=== PATIENT | female | born 1945 | race Caucasian/White ===

== ENCOUNTER → 2018-02-11 09:10 | Outpatient (CLI) | payer OTHER, SELFPAY ==
--- NOTE | 2018-02-11 09:12 | DI.US.S_ITS ---
LIMITED ULTRASOUND OF LEFT BREAST: 02/11/2018 CLINICAL: Diffuse left breast pain. Improving since onset December 2017. Comparison is made to exams dated: 02/28/2017 mammogram, 12/27/2015 mammogram, and 06/23/2014 mammogram - [facility]. Real-time and Doppler ultrasound of the left breast were performed. Targeted ultrasound was performed in the areas of the patient's reported diffuse left breast pain (including the 4, 7, and 10 o'clock radians). No underlying breast mass or abnormality is identified. The patient is status post left mastectomy. A left breast implant is partially imaged on this exam. IMPRESSION: BENIGN 1) No ultrasound findings to explain patient's reported diffuse left breast pain. Recommend clinical follow-up for further evaluation and management of the patient's reported symptoms. 2) There is no sonographic evidence of malignancy in the imaged left breast, which is status post mastectomy. Recommend clinical follow-up for further evaluation and management. The patient is advised to monitor her breasts and to return for re-evaluation should she feel anything grow or change. This exam was interpreted at Station ID: [id number]. Electronically Signed By: Harrison Esquivel M.D. ecl/:02/11/2018 11:29:12 letter sent: Clinical Evaluation Ultrasound BI-RADS: 2 Benign
--- NOTE | 2018-02-11 09:12 | DI.MG.S_ITS ---
UNILATERAL RIGHT DIGITAL DIAGNOSTIC MAMMOGRAM 3D/2D POST MASTECTOMY: 02/11/2018 CLINICAL: Right breast lump. Per technologist, the patient had a clinical breast exam approximately 2 weeks prior. The order requisition states Lump in right breast LOQ. However, the patient is unable to identify the area herself on today's exam. The patient denies any pain, skin changes, or discharge. Comparison is made to exams dated: 02/28/2017 mammogram, 12/27/2015 mammogram, and 06/23/2014 mammogram - [facility]. The tissue of right breast is predominantly fatty. No suspicious masses or abnormalities are identified in the lower outer quadrant of the right breast. There are overlying circular mole markers on the skin. An asymmetry in the inner/medial right breast posterior depth seen only on the RCC view resolves with additional spot tomosynthesis images, and likely represented superimposition of benign tissues. No significant masses, calcifications, or other findings are seen in the imaged right breast. IMPRESSION: INCOMPLETE: NEEDS ADDITIONAL IMAGING EVALUATION No mammographic abnormality to correlate with the site of the patient's provider's reported focal palpable abnormality in the lower outer quadrant of the right breast. Targeted diagnostic ultrasound recommended for further evaluation, which will be performed immediately following this exam. This exam was interpreted at Station ID: [id number]. NOTE: For mammograms, a report in lay terms will be sent to the patient. Approximately 15% of breast malignancies will not be visualized mammographically. In the management of a palpable breast mass, a negative mammogram must not discourage biopsy of a clinically suspicious lesion. Electronically Signed By: Harrison Esquivel M.D. ecl/:02/11/2018 10:04:10 letter sent: Additional Imaging Needed ACR BI-RADS Category 0: Incomplete [id number]
--- NOTE | 2018-02-11 09:12 | DI.US.S_ITS ---
LIMITED ULTRASOUND OF RIGHT BREAST: 02/11/2018 CLINICAL: Palpable right breast lump by physician. Per technologist, the patient had a clinical breast exam approximately 2 weeks prior. The order requisition states Lump in right breast LOQ. However, the patient is unable to identify the area herself on today's exam. The patient denies any pain, skin changes, or discharge. Comparison is made to exams dated: 02/11/2018 mammogram - [facility], 02/28/2017 mammogram, 12/27/2015 mammogram, and 06/23/2014 mammogram - [place]. Real-time ultrasound of the right breast lower aspect was performed. Knight scale images of the real-time examination were reviewed. Targeted ultrasound was performed in the region of the patient's provider's reported focal palpable abnormality. Lower right breast scarring noted. No other underlying breast mass or abnormality is identified. IMPRESSION: BENIGN 1) Lower right breast scarring noted. No other ultrasound findings to explain patient's provider's reported focal palpable abnormality. Recommend clinical follow-up for further evaluation and management of the patient's reported symptoms. 2) There is no sonographic evidence of malignancy in the imaged right breast. Return to annual screening mammography of the right breast is recommended. The patient is advised to monitor her breasts and to return sooner for re-evaluation should she feel anything grow or change. This exam was interpreted at Station ID: [id number]. Electronically Signed By: Harrison Esquivel M.D. ecl/:02/11/2018 11:23:40 letter sent: Clinical Evaluation Ultrasound BI-RADS: 2 Benign
== END ==
PROVIDERS: PCP Family Medicine; Visit Provider Family Medicine
DX: R92.8 Other abnormal and inconclusive findings on diagnostic imaging of breast (principal); N63.13 Unspecified lump in the right breast, lower outer quadrant; N64.4 Mastodynia; Z85.3 Personal history of malignant neoplasm of breast; Z90.12 Acquired absence of left breast and nipple; Z98.82 Breast implant status
CPT/HCPCS: 76642; 77065; G0279

== ENCOUNTER → 2018-11-18 14:00 | Oncology outpatient (ONC) | payer OTHER, SELFPAY ==
--- NOTE | 2018-03-22 13:20 | ONC.PN ---
PN -Subjective Interval history: Jacy Vargas is a 72 year old female. In 2008, she presents with left upper abdominal pain. Cholecystitis was suspected. She underwent laparoscopic cholecystectomy at [place]. During surgery, a pancreatic mass was noted and was biopsied. The pathology showed pancreatic adenocarcinoma which was verified at [facility]. She underwent 8 months of chemotherapy with gem/cis. While during the chemotherapy, she also took Emvezil from [facility] which she is still taking up to now. At the time, she did not tell treating medical oncologist in fear that her chemotherapy might be terminated. After, five months of chemotherapy, scan showed the tumor was shrinking. She said she did get pancreatic surgery because she was deemed not a suitable candidate due to previous surgery. Since then, she has been getting CT scan every year and has been unremarkable until Dec 2016 when a nodule on the left in the lung was noted in [place]. She is now being followed at [facility] by Dr. Toscano, pulmonary specialty. Next CT scan is scheduled for Apr 2018. In 2003, she was diagnosed with left breast DCIS. She underwent left mastectomy. She did not receive chemo and did not receive radiation. She took 5 years of arimidex. She is here to establish care. Her energy level is Ok if not for the right shoulder soreness. She felt like in the muscle. She is getting Physical therapy and found it very helpful. Appetite is good. She reports no shortness of breath, or chest pain. She denies nausea or vomiting. She reports no constipation or diarrhea or BRBPR or black stool. Her weight has been stable. She has a port in place and is now getting port flushes every month. - Additional ROS All systems PM: reviewed and no additional remarkable complaints except as stated Home Medications and Allergies Home Medications Medication Instructions Recorded Confirmed Type amlodipine 10 mg PO QDAY #90 tab 10/26/15 02/13/18 Rx fenofibrate nanocrystallized 145 mg PO QDAY #90 tab 10/26/15 02/13/18 Rx [Tricor] insulin regular hum U-500 conc 0 unit SQ BID #0 11/03/15 02/13/18 History [Humulin R U-500 (Conc) Insulin] vitamins A,C,V-upom-wrtmgy 1 sgl PO BID #0 11/03/15 02/13/18 History [PreserVision AREDS] [VITAMIN D] 50,000 iu PO QWEEK #4 tab 05/31/16 02/13/18 Rx epinephrine 0.3 mg IM PRN PRN #0 07/03/16 02/13/18 History insulin NPH isoph U-100 human 0 unit SQ #0 07/03/16 02/13/18 History [Humulin N NPH U-100 Insulin] rosuvastatin [Crestor] 10 mg PO QPM #0 09/25/16 02/13/18 History lisinopril 40 mg PO QDAY #90 tab 10/18/16 02/13/18 Rx metformin [Glucophage] 1,000 mg PO BIDCC #180 tab 01/26/17 02/13/18 Rx spironolactone 25 mg tablet 25 mg PO DAILY #90 tab 02/18/18 Rx blood sugar diagnostic [True 03/22/18 03/22/18 History Metrix Glucose Test Strip] blood-glucose meter [True Metrix 03/22/18 03/22/18 History Glucose Meter] clindamycin HCl 03/22/18 History clindamycin HCl 03/22/18 History lancets [True Comfort Lancet] 03/22/18 03/22/18 History metoprolol succinate 12.5 mg PO QDRHS 03/22/18 03/22/18 History metoprolol succinate 25 mg PO QDAY 03/22/18 History Allergies Allergy/AdvReac Type Severity Reaction Status Date / Time Penicillins [PENICILLINS] Allergy Unknown HIVES Verified 02/13/18 13:51 Exam Vital signs: Last Vital Signs Temp 98.8 F 03/22/18 15:15 Pulse 80 03/22/18 15:15 Resp 18 03/22/18 15:15 BP 157/66 H 03/22/18 15:15 ECOG 1 Narrative: Gen: WDWN, moderate obese, NAD, very pleasant and cooperative. HEENT: NCAT, EOMI, PERLLA, anicteric, Neck: Supple, No palpable thyromegaly, and no palpable lymphadenopathy Resp: CTAB, no wheezes Abd: soft, nontender, no palpable organomegaly Ext: no pitting edema Neuro: AOx3, nonfocal. Results - Labs Reviewed. Assessment and Plan (1) Malignant neoplasm of pancreas Problem details: Pancreatic adenocarcinoma, diagnosed in 2009, s/p chemotherapy. No surgical resection per patient. Assessment and Plan: Clinically, I do not think there is any evidence to suggest disease recurrence or metastasis. Will have her come back in 3 months, CBC, CMP, CA19-9, and CEA one week prior to the visit. Port flush every 6-8 weeks. (2) DCIS (ductal carcinoma in situ) of breast Problem details: In 2003, she was diagnosed with left breast DCIS. She underwent left mastectomy. She did not receive chemo and did not receive radiation. She took 5 years of arimidex. Assessment and Plan: Will continue current annual H&P and mammogram.
--- NOTE | 2018-03-22 13:39 | P.PNONC_ITS ---
PN -Subjective Interval history: Jacy Vargas is a 72 year old female. In 2008, she presents with left upper abdominal pain. Cholecystitis was suspected. She underwent laparoscopic cholecystectomy at [place], [place]. During surgery, a pancreatic mass was noted and was biopsied. The pathology showed pancreatic adenocarcinoma which was verified at [facility]. She underwent 8 months of chemotherapy with gem/cis. While during the chemotherapy, she also took Emvezil from [facility] which she is still taking up to now. At the time, she did not tell treating medical oncologist in fear that her chemotherapy might be terminated. After, five months of chemotherapy, scan showed the tumor was shrinking. She said she did get pancreatic surgery because she was deemed not a suitable candidate due to previous surgery. Since then, she has been getting CT scan every year and has been unremarkable until Dec 2016 when a nodule on the left in the lung was noted in [place]. She is now being followed at [facility] by Dr. Toscano , pulmonary specialty. Next CT scan is scheduled for Apr 2018. In 2003, she was diagnosed with left breast DCIS. She underwent left mastectomy. She did not receive chemo and did not receive radiation. She took 5 years of arimidex. She is here to establish care. Her energy level is Ok if not for the right shoulder soreness. She felt like in the muscle. She is getting Physical therapy and found it very helpful. Appetite is good. She reports no shortness of breath, or chest pain. She denies nausea or vomiting. She reports no constipation or diarrhea or BRBPR or black stool. Her weight has been stable. She has a port in place and is now getting port flushes every month. - Additional ROS All systems PM: reviewed and no additional remarkable complaints except as stated Home Medications and Allergies Home Medications Medication Instructions Recorded Confirmed Type amlodipine 10 mg PO QDAY #90 tab 10/26/15 02/13/18 Rx fenofibrate nanocrystallized 145 mg PO QDAY #90 tab 10/26/15 02/13/18 Rx [Tricor] insulin regular hum U-500 conc 0 unit SQ BID #0 11/03/15 02/13/18 History [Humulin R U-500 (Conc) Insulin] vitamins A,C,O-rdin-fkiiaz 1 sgl PO BID #0 11/03/15 02/13/18 History [PreserVision AREDS] [VITAMIN D] 50,000 iu PO QWEEK #4 tab 05/31/16 02/13/18 Rx epinephrine 0.3 mg IM PRN PRN #0 07/03/16 02/13/18 History insulin NPH isoph U-100 human 0 unit SQ #0 07/03/16 02/13/18 History [Humulin N NPH U-100 Insulin] rosuvastatin [Crestor] 10 mg PO QPM #0 09/25/16 02/13/18 History lisinopril 40 mg PO QDAY #90 tab 10/18/16 02/13/18 Rx metformin [Glucophage] 1,000 mg PO BIDCC #180 tab 01/26/17 02/13/18 Rx spironolactone 25 mg tablet 25 mg PO DAILY #90 tab 02/18/18 Rx blood sugar diagnostic [True 03/22/18 03/22/18 History Metrix Glucose Test Strip] blood-glucose meter [True Metrix 03/22/18 03/22/18 History Glucose Meter] clindamycin HCl 03/22/18 History clindamycin HCl 03/22/18 History lancets [True Comfort Lancet] 03/22/18 03/22/18 History metoprolol succinate 12.5 mg PO QDRHS 03/22/18 03/22/18 History metoprolol succinate 25 mg PO QDAY 03/22/18 History Allergies Allergy/AdvReac Type Severity Reaction Status Date / Time Penicillins [PENICILLINS] Allergy Unknown HIVES Verified 02/13/18 13:51 Exam Vital signs: 2 Last Vital Signs Temp 98.8 F 03/22/18 15:15 Pulse 80 03/22/18 15:15 Resp 18 03/22/18 15:15 BP 157/66 H 03/22/18 15:15 ECOG 1 Narrative: Gen: WDWN, moderate obese, NAD, very pleasant and cooperative. HEENT: NCAT, EOMI, PERLLA, anicteric, Neck: Supple, No palpable thyromegaly, and no palpable lymphadenopathy Resp: CTAB, no wheezes Abd: soft, nontender, no palpable organomegaly Ext: no pitting edema Neuro: AOx3, nonfocal. Results - Labs Reviewed. Assessment and Plan (1) Malignant neoplasm of pancreas Problem details: Pancreatic adenocarcinoma, diagnosed in 2008, s/p chemotherapy. No surgical resection per patient. Assessment and Plan: Clinically, I do not think there is any evidence to suggest disease recurrence or metastasis. Will have her come back in 3 months, CBC, CMP, CA19-9, and CEA one week prior to the visit. Port flush every 6-8 weeks. (2) DCIS (ductal carcinoma in situ) of breast Problem details: In 2003, she was diagnosed with left breast DCIS. She underwent left mastectomy. She did not receive chemo and did not receive radiation. She took 5 years of arimidex. Assessment and Plan: Will continue current annual H&P and mammogram.
[2018-03-22 15:15] VITALS: BP 157/66; PULSE 80; RESP 18; TEMP 37.1
== END ==
PROVIDERS: Family Provider Physician Assistant Medical; PCP Family Medicine; Visit Provider Nurse Practitioner Gerontology
DX: Z45.2 Encounter for adjustment and management of vascular access device (principal); Z85.07 Personal history of malignant neoplasm of pancreas; Z86.000 Personal history of in-situ neoplasm of breast
CPT/HCPCS: 96523; 99214

== ENCOUNTER 2018-12-05 20:00 | Emergency (ER) | payer OTHER, SELFPAY ==
[2018-12-05 20:10] VITALS: BP 177/73; PULSE 86; RESP 14; TEMP 37.2; O2SAT 98; BMI 34.8
--- NOTE | 2018-12-05 20:28 | ED.RECABL ---
HPI - Recheck/Abnormal Lab/Rx General Chief Complaint: Recheck/Abnormal Lab/Rx Stated Complaint: abnormal lab results Time Seen by Provider: 12/05/18 20:07 Source: patient Mode of arrival: ambulatory Limitations: no limitations History of Present Illness HPI narrative: Patient is a 73-year-old female who arrived to the emergency department stating that she was called by her fly fishing guide office to come to the emergency department to be admitted to the hospital for ?abnormal labs ?patient stated that she did not know which labs are abnormal. They were drawn yesterday. They were ordered by her fly fishing guide. She stated it was just a routine lab draw. She states she is having some muscle spasms in her back which has been going on for the past several days but otherwise is completely asymptomatic. Related Data Home Medications Medication Instructions Recorded Confirmed vitamins A,C,Z-ggtn-degago 1 sgl PO BID #0 11/03/15 10/11/18 [PreserVision AREDS] epinephrine 0.3 mg IM PRN PRN #0 07/03/16 10/11/18 rosuvastatin [Crestor] 10 mg PO QPM #0 09/25/16 10/11/18 blood sugar diagnostic [True 03/22/18 10/11/18 Metrix Glucose Test Strip] blood-glucose meter [True Metrix 03/22/18 10/11/18 Glucose Meter] clindamycin HCl 03/22/18 10/11/18 lancets [True Comfort Lancet] 03/22/18 10/11/18 insulin NPH isoph U-100 human 100 80 unit SUBCUT #0 ml 08/12/18 10/11/18 human 100 unit/mL subcutaneous suspension insulin regular hum U-500 conc See Rx Instructions SUBCUT BID 08/12/18 10/11/18 500concentrate 500 unit/mL subcutaneous soln metoprolol succinate 25 mg See Rx Instructions PO QDRHS 08/12/18 10/11/18 tablet,extended release 24 hr Previous Rx's Medication Instructions Recorded amlodipine 10 mg PO QDAY #90 tab 10/26/15 fenofibrate nanocrystallized 145 mg PO QDAY #90 tab 10/26/15 [Tricor] lisinopril 40 mg PO QDAY #90 tab 10/18/16 metformin [Glucophage] 1,000 mg PO BIDCC #180 tab 01/26/17 spironolactone 25 mg tablet 25 mg PO DAILY #90 tab 02/18/18 [VITAMIN D] See Rx Instructions PO 2XW #24 tab 08/20/18 ergocalciferol (vitamin D2) 50,000 50,000 unit PO QWEEK #12 cap 08/20/18 unit capsule Allergies Allergy/AdvReac Type Severity Reaction Status Date / Time Penicillins [PENICILLINS] Allergy Unknown HIVES Verified 12/05/18 20:18 Review of Systems Constitutional Constitutional: Denies fever(s) and Denies headache(s) ENT Ears, Nose, Mouth, and Throat: Denies headache(s) Cardiovascular Cardiovascular: Denies chest pain and Denies dyspnea Respiratory Respiratory: Denies dyspnea Gastrointestinal Gastrointestinal: Denies abdominal pain Genitourinary Genitourinary: Denies dysuria Musculoskeletal Musculoskeletal: Reports back pain and Denies arthralgias Integumentary/Breasts Skin/Breast: Denies lesions and Denies rash Neurologic Neurologic: Denies behavioral changes and Denies headache(s) Psychiatric Psychiatric: Denies behavioral changes Hematologic/Lymphatic Hematologic/Lymphatic: Denies easy bleeding and Denies easy bruising PFS Medical History Basal cell carcinoma (Resolved ~2000) Breast cancer (Acute 2003) Cataracts, bilateral (Resolved ~2015) Chronic liver disease (Chronic) Colon polyps (Resolved 1999) Diabetes (Chronic 1999) Heart murmur (Chronic) Hyperlipemia (Chronic) Hypertension (Chronic 2000) Irregular menstrual cycle (Resolved) Measles (Resolved) Mild aortic stenosis (Chronic 01/2016) PAD (peripheral artery disease) (Chronic) Pancreatic cancer (Acute 2008) Skin cancer (Resolved 2000) Sleep apnea (Chronic 2002) Urinary incontinence (Chronic 2000) Family History (Updated 11/12/17 @ 10:11 by Tierra Connell LPN) Mother MS (multiple sclerosis) Father Cancer Diabetes mellitus Myocardial infarction Social History Smoking Status: Former smoker alcohol intake: never Exam Initial Vital Signs Initial Vital Signs: Vital Signs Temperature 98.9 F 12/05/18 20:10 Pulse Rate 86 12/05/18 20:10 Respiratory Rate 14 12/05/18 20:10 Blood Pressure 177/73 H 12/05/18 20:10 Pulse Oximetry 98 12/05/18 20:10 Const General: cooperative, healthy appearing, comfortable, well developed and well groomed Orientation: alert, awake and oriented x3 HENMT Head: normal to inspection and normocephalic Chest Chest: normal inspection of the chest Resp Effort & Inspection: normal respiratory effort Auscultation: clear to auscultation bilaterally Cardio Rate: regular rate Rhythm: regular rhythm Back/Spine/Pelvis Other: Tenderness to palpation right CVA area. Skin Lesions: no lesions Rashes: no rashes Neuro General: alert and awake Cognition: normal cognition Speech: speech normal Gait: normal gait Extrem General: normal to inspection and capillary refill normal Psych Appearance: grossly normal and well kempt Course Orders Ordered: ED Orders 12/05/18 20:45 B Type Natriuretic Peptide Stat Basic Metabolic Panel Stat Complete Blood Count AUTO DIFF Stat Troponin I Stat 12/05/18 20:47 EKG-12 Lead Stat Discontinued Medications Hydrocodone Bitart/Acetaminophen ([place] 5/325) 1 tab PO NOW ONE Stop: 12/05/18 21:56 Last Admin: 12/05/18 22:06 Dose: 1 tab Documented by: MMCFARL Hydrocodone Bitart/Acetaminophen (Vicodin Prepack) 1 bottle MISC SEEINSTR ONE Stop: 12/05/18 22:23 Last Admin: 12/05/18 22:25 Dose: 1 bottle Documented by: DEVONTEL Cyclobenzaprine HCl (Flexeril) 10 mg PO NOW ONE Stop: 12/05/18 20:34 Last Admin: 12/05/18 20:43 Dose: 10 mg Documented by: REJI Vital Signs Vital signs: Vital Signs - 8 hr 12/05/18 20:10 12/05/18 22:25 Temperature 98.9 F Pulse Rate 86 81 Respiratory Rate 14 14 Blood Pressure 177/73 H 157/70 H Pulse Oximetry 98 98 MDM - Recheck/Abnormal Lab/Rx Lab Data Attestation: I reviewed the patient's lab results. Result diagrams: 12/05/18 20:45 12/05/18 20:45 Labs: Lab Results 12/05/18 12/05/18 Range/Units 20:45 20:45 WBC 10.6 (4.5-11.0) X10^3/uL RBC 4.35 (4.0-5.2) X10^6/uL Hgb 13.4 (12.0-16.0) g/dL Hct 39.6 (36-46) % MCV 91.1 (80-100) fL MCH 30.9 (26-34) PG MCHC 33.9 (30-36) % RDW 13.0 (11.6-14.8) % Plt Count 210 (150-400) X10^3/uL Neut % (Auto) 52.5 (50-75) % Lymph % (Auto) 33.2 (25-40) % Walton % (Auto) 6.1 (3-14) % Eos % (Auto) 6.7 H (2-4) % Baso % (Auto) 1.5 (0-2) % Neut # (Auto) 5600 (8239-7980) /uL Lymph # (Auto) 3500 (6922-5974) /uL Walton # (Auto) 600 (0-900) /uL Eos # (Auto) 700 H (0-450) /uL Baso # (Auto) 200 H (0-100) /uL Sodium 138 (137-145) mmol/L Potassium 4.6 (3.4-5.1) mmol/L Chloride 99 (98-107) mmol/L Carbon Dioxide 27 (22-32) mmol/L BUN 66 H (7-17) mg/dL Creatinine 2.00 H (0.52-1.04) mg/dL Estimated GFR 24.3 L (>60) mL/min BUN/Creatinine Ratio 33.0 H (6-22) Glucose 228 H (80-110) mg/dL Calcium 9.4 (8.4-10.2) mg/dL Troponin I < 0.012 (0.01-0.034) ng/mL B-Natriuretic Peptide < 100 (<100) ECG Data Attestation: I personally reviewed and interpreted this ECG as follows: Prior ECG tracings: not available for review Interpretation: Sinus rhythm Ventricular rate 84 Normal axis Normal QRS Normal QTC No ST T wave changes MDM Narrative Medical decision making narrative: Unsure as the exact reason why her fly fishing guide send her to the emergency department. Nursing staff talked with the on-call fly fishing guide who is not the 1 who told her to come to the ER. She was able to review the labs in the only abnormality that was found was an elevation in her creatinine. This was re-demonstrated here in the emergency department. Her elevated creatinine and decrease in GFR appears to be new. She recently started on a new diabetic medication but that is the only new medication. She is also on Lasix. I did inform the patient that her elevated creatinine does need to be followed by her primary doctor however we do not need to admit her to the hospital for further workup of this. Her right-sided back pain does appear to be musculoskeletal in nature. No signs of zoster. Low suspicion for kidney stones. She has no symptoms consistent with a urinary tract infection. Will hold on further workup for now. Patient was given return precautions and follow-up instructions. She expressed understanding and agreement with plan. Discharge Plan Departure Patient Disposition: Home Clinical Impression: Creatinine elevation, Muscle spasm Discharge Date/Time: 12/05/18 22:25 Instructions: DI for Muscle Spasm Activity Restrictions/Additional Instructions: I recommend that tomorrow you talk with your primary provider about further workup of your elevated kidney function. Continue all of your medications as directed. Return to the emergency department for any new or worsening symptoms Prescriptions: No Action amlodipine 10 MG tablet 10 mg PO QDAY Qty: 90 RF: 3 fenofibrate nanocrystallized [Tricor] 145 MG tablet 145 mg PO QDAY Qty: 90 RF: 3 vitamins A,C,Y-dfhe-tizhar [PreserVision AREDS] 1 EACH capsule 1 sgl PO BID Qty: 0 RF: 0 epinephrine 0.3 MG/0.3 ML auto-injector 0.3 mg IM PRN PRN (Reason: Allergic Reaction) Qty: 0 RF: 0 rosuvastatin [Crestor] 10 MG tablet 10 mg PO QPM Qty: 0 RF: 0 lisinopril 40 MG tablet 40 mg PO QDAY Qty: 90 RF: 0 metformin [Glucophage] 1,000 MG tablet 1,000 mg PO BIDCC Qty: 180 RF: 0 spironolactone [Aldactone] 25 mg tablet 25 mg PO DAILY Qty: 90 RF: 1 Humulin N NPH U-100 Insulin 100 unit/mL suspension 80 unit subcut Qty: 0 RF: 0 Humulin R U-500 (Conc) Insulin 500 unit/mL solution See Rx Instructions subcut BID RF: 0 ergocalciferol (vitamin D2) 50,000 unit capsule 50,000 unit PO QWEEK Qty: 12 RF: 3 [VITAMIN D] See Rx Instructions PO 2XW Qty: 24 RF: 3 clindamycin HCl 300 mg capsule RF: 0 (DME) blood-glucose meter [True Metrix Glucose Meter] Misc RF: 0 (DME) blood sugar diagnostic [True Metrix Glucose Test Strip] Strip RF: 0 (DME) lancets [True Comfort Lancet] 30 gauge Misc RF: 0 metoprolol succinate 25 mg tablet extended release 24 hr See Rx Instructions PO QDRHS RF: 0 Referrals: Yanique Koch DO [Primary Care Provider] -
[2018-12-05] MEDS: CYCLOBENZAPRINE 10 MG TABLET PO (20:43)
[2018-12-05 20:51] LABS: Add Manual Diff / Slide Review NO; Basophils Absolute Auto 200 /uL (0-100); Basophils Percent Auto 1.5 % (0-2); Eosinophils Absolute Auto 700 /uL (0-450); Eosinophils Percent Auto 6.7 % (2-4); Hematocrit 39.6 % (36-46); Hemoglobin 13.4 g/dL (12.0-16.0); Lymphocytes Absolute Auto 3500 /uL (1100-4500); Lymphocytes Percent Auto 33.2 % (25-40); Mean Corpuscular HGB Conc 33.9 % (30-36); Mean Corpuscular Hemoglobin 30.9 PG (26-34); Mean Corpuscular Volume 91.1 fL (80-100); Monocytes Absolute Auto 600 /uL (0-900); Monocytes Percent Auto 6.1 % (3-14); Neutrophils Absolute Auto 5600 /uL (1500-7000); Neutrophils Percent Auto 52.5 % (50-75); Platelet Count 210 X10^3/uL (150-400); Red Blood Cell Count 4.35 X10^6/uL (4.0-5.2); White Blood Cell Count 10.6 X10^3/uL (4.5-11.0)
[2018-12-05 21:04] LABS: Blood Urea Nitrogen 66 mg/dL (7-17); Calcium 9.4 mg/dL (8.4-10.2); Carbon Dioxide 27 mmol/L (22-32); Chloride 99 mmol/L (98-107); Estimated Glomerular Filt Rate 24.3 mL/min (>60); Glucose 228 mg/dL (80-110); HEMOLYSIS < 15 (0-50); Potassium 4.6 mmol/L (3.4-5.1); Sodium 138 mmol/L (137-145)
[2018-12-05 21:15] LABS: Troponin I < 0.012 ng/mL (0.01-0.034)
[2018-12-05 21:17] LABS: B Type Natriuretic Peptide < 100 (<100)
[2018-12-05] MEDS: HYDROCODONE/ACET 5/325 TABLET 1 TAB PO (22:06)
[2018-12-05 22:25] VITALS: BP 157/70; PULSE 81; RESP 14; O2SAT 98
[2018-12-05] MEDS: HYDROCODONE/ACET 5/325 PREPACK 1 BOTTLE MISC (22:25)
== END 2018-12-05 22:25 | disposition home or self-care (01) ==
PROVIDERS: Emergency Provider Emergency Medicine; Family Provider Internal Medicine Cardiovascular Disease; PCP Family Medicine
DX: R79.89 Other specified abnormal findings of blood chemistry (principal); M54.9 Dorsalgia, unspecified
CPT/HCPCS: 36415; 80048; 83880; 84484; 85025; 93005; 93010; 99282; 99284